=== PATIENT | male | born 1975 | race Two or more races ===

== ENCOUNTER 2017-01-17 11:21 | Emergency (ER) | payer SELFPAY ==
[2017-01-17 11:29] VITALS: BP 141/41; BMI 25.0
[2017-01-17] MEDS ORDERED: ADACEL TDaP IM ONE ×2 (12:26→12:29)
[2017-01-17] MEDS ORDERED: HYDROGEN PEROXIDE 3% ONE (12:28)
--- NOTE | 2017-01-17 13:10 | RAD ---
HISTORY: Crush injury to left 5th digit. Study: Left hand three views Comparison: None. Findings: There is a fracture through the distal aspect of the distal phalanx of the left 5th digit. There is o verlying soft tissue swelling. There is no evidence of dislocation. IMPRESSION: 1. Acute fracture through the distal phalanx of the left 5th digit. Reported By:
--- NOTE | 2017-01-17 13:46 | DR.LACERAT ---
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 He c/o pain and cut of his little finger. - Complaints Chief Complaint Doctors Comments: " My little finger hurts" Chief Complaint:: PT SMASHED HIS LEFT PINKY FINGER WHILE WORKING ON A TRACTOR HIS FINGER GOT SMASHED .. Self Treatment fo Chief Complaint: PT STATES HE WAS WORKING ON HIS [employer] AND HE'S PRESENT .. - Reviewed Nurses Notes Reviewed: Yes - Source History Provided: Patient - Mode of Arrival Mode of Arrival: Ambulatory - Timing Onset of Chief Complaint: 01/17/17 PMH - PMH Past Medical History: No Past Surgical History: No - Family History History of Family Medical Conditions: No - Social History Does patient currently use any type of tobacco product: Yes Have you used tobacco products in the last 12 months: Yes Type of Tobacco Use: Cigarettes How many years tobacco product used: 3 Does any household member use tobacco: No Alcohol Use: None Do you use any recreational Drugs:: No Lives With: Family Lives Where: Home - infectious screening In the last 2 months have you had wt loss of >10#?: NO Have you had fever, night sweats or hemotysis?: No Have you traveled outside the country in the last 6 months?: No Isolation: Standard ROS - Review of Systems Constitutional: No Symptoms Reported Respiratoy: No Symptoms Reported Cardiovascular: No Symptoms Reported Gastrointestinal/Abdominal: No Symptoms Reported Genitourinary: No Symptoms Reported Neurological: No Symptoms Reported Musculoskeletal: Left, Hand (laceration and possible fracture) Integumentary: No Symptoms Reported Hematologic/Lymphatic: No Symptoms Reported Psychiatric: No Symptoms Reported All Other Systems: Reviewed and Negative PE - Vital Signs Vitals: Temperature 98.4 F Pulse Rate 70 Respiratory Rate 20 Blood Pressure 141/41 O2 Sat by Pulse Oximetry 97 - General Limitations: No Limitations General Appearance: Alert, In No Apparent Distress - Chest Chest Inspection: Normal Inspection, Symmetric Chest Wall Rise - Respiratory Respiratory Exam: Normal Lung Sounds Bilat Respiratory Exam: Bilateral Clear to Auscultation - Cardiovascular Cardiovascular Exam: Regular Rate, Normal Rhythm, Normal Heart Sounds - Skin Skin Exam: Warm, Dry Type of Lesion: Laceration Distribution: Other (5th digit left hand) Description: Size (1cm) - Other Exam Other Exam: Left distal 5th phalanx with grease , dorsal avulsive laceration and palmar linear [place] laceration(1 cm). MDM - Differential Diagnosis Differential Diagnosis: Avulsion, Contusion, Laceration, Fracture ROR - Labs Reviewed Laboratory Results Reviewed?: Yes - XRAY XRAY Interpreted by: Radiologist (distal 5th phalanx fracture ) Procedures - Laceration/Wound Repair Left Distal 4th Digit Wound's Depth, Shape: Other (small bone exposure) Wound Explored: foreign body removed (grease, green paint, dirt) Irrigated w/ Saline (ccs): 50 Betadine Prep?: Yes Anesthesia: 1% Lidocaine Volume Anesthetic (ccs): 10 Wound Debrided: moderate Suture Size/Type: Vicryl Progress: Small area of bony exposure noted, severe contamination with grease, dirt, green paint and grass. No sutures. I will send to ortho for possible deep irrigation and repair. - Diagnosis Discharge Problem: Fracture phalanges, hand Qualifiers: Encounter type: initial encounter Fracture type: closed Qualified Code(s): S62.609A - Fracture of unspecified phalanx of unspecified finger, initial encounter for closed fracture Laceration of finger of left hand Qualifiers: Encounter type: initial encounter Finger: little finger Damage to nail status: with damage Foreign body presence: with foreign body Qualified Code(s): S61.327A - Laceration with foreign body of left little finger with damage to nail, initial encounter - Discharge Plan Disposition: 01 HOME, SELF-CARE Condition: Stable Prescriptions: Ciprofloxacin HCl [CIPRO 500 MG TAB *] 500 mg PO Q12H #20 tab Hydrocodone/Acetaminophen [[place] 5-325 Tablet] 1 each PO QID PRN #15 tablet PRN Reason: - Follow ups/Referrals Follow ups/Referrals: KERRI YOUNG [Primary Care Provider] - 3 days - Instructions Instructions: Laceration Care, Adult, [id number], Crush Injury of the Fingers or Toes
[2017-01-17] MEDS ORDERED: ANCEF VIAL 1 GM IM ONE (13:49)
[2017-01-17] MEDS ORDERED: ANCEF VIAL 1 GM ONE (13:52)
[2017-01-17] MEDS ORDERED: XYLOCAINE 2 % (PLAIN) ONE (14:43)
[2017-01-17] MEDS ORDERED: BACITRACIN ZINC ONE (15:03)
== END 2017-01-17 15:25 | disposition home or self-care (01) ==
LOC: ER 11:33
PROC: 0PQ Upper Bones, Repair (ICD-10-PCS; principal; 2017-01-17)
DX: S62.609A Fracture of unspecified phalanx of unspecified finger, initial encounter for closed fracture (principal); S61.327A Laceration with foreign body of left little finger with damage to nail, initial encounter; W45.8XXA Other foreign body or object entering through skin, initial encounter; Y92.89 Other specified places as the place of occurrence of the external cause
CPT/HCPCS: 12001; 73130; 96372; 99282; 99283; J0690; J2001

== ENCOUNTER 2017-01-18 11:38 | Day surgery (SDC) | payer SELFPAY ==
[2017-01-18 11:42] LABS: BASOPHILS % (AUTO) 0.4 % (0.2-1.0); EOSINOPHILS % (AUTO) 0.6 % (0.9-2.9); HEMATOCRIT 44.3 % (42.0-54.0); HEMOGLOBIN 15.5 g/dL (13.5-18.0); LYMPHOCYTES # (AUTO) 1.6 X10^3/uL (1.3-2.9); LYMPHOCYTES % (AUTO) 19.8 % (21.0-51.0); MEAN CORPUSCULAR HEMOGLOBIN 30.8 pg (27.0-34.0); MEAN CORPUSCULAR HGB CONC 35.1 g/dL (33.0-35.0); MEAN CORPUSCULAR VOLUME 87.8 fL (80.0-100.0); MEAN PLATELET VOLUME 10.4 fL (7.4-11.0); MONOCYTES # (AUTO) 0.6 x10^3/uL (0.3-0.8); MONOCYTES % (AUTO) 7.6 % (0.0-13.0); NEUTROPHILS # (AUTO) 5.7 x10^3/uL (2.2-4.8); NEUTROPHILS % (AUTO) 71.6 % (42.0-75.0); PLATELET COUNT 162 X10^3/uL (150.0-450.0); RED BLOOD COUNT 5.05 X10^6/uL (4.7-6.0); RED CELL DISTRIBUTION WIDTH 13.5 % (11.6-16.5)
[2017-01-18] MEDS ORDERED: D5 LR 1000 ML 1,000 ML IV ONE (11:42)
[2017-01-18 11:51] LABS: ALANINE AMINOTRANSFERASE 35 Units/L (12-78); ALBUMIN 3.7 g/dL (3.4-5.0); ALKALINE PHOSPHATASE 73 Units/L (46-116); ASPARTATE AMINO TRANSFERASE 15 Units/L (15-37); BLOOD UREA NITROGEN 16 mg/dL (7-18); CALCIUM 8.6 mg/dL (8.5-10.1); CARBON DIOXIDE 32.7 mmol/L (21-32); CHLORIDE 104 mmol/L (98-107); CREATININE 1.01 mg/dL (0.70-1.30); GLUCOSE 90 mg/dL (65-99); SODIUM 140 mmol/L (136-145); TOTAL PROTEIN 7.2 g/dL (6.4-8.2); eGFR BLACK RACES > 60 (>60); eGFR NON BLACK RACES > 60 (>60)
[2017-01-18] MEDS ORDERED: XYLOCAINE 1 % (PLAIN) ONE (13:06)
[2017-01-18] MEDS ORDERED: MARCAINE 0.25% INJ ONE (13:07)
[2017-01-18] MEDS ORDERED: NS IRRIGATION 1000 ML 1,000 ML with BACITRACIN VIAL 50,000 UNT IR ONE ×6 (14:00→15:40)
[2017-01-18] MEDS: BACTROBAN OINT ONE ×2 (14:04→15:58)
[2017-01-18] MEDS ORDERED: NS 50 ML IV + SPIKE MINIBAG* 100 ML IV ONE (14:11)
[2017-01-18] MEDS ORDERED: ANCEF VIAL 1 GM ONE (14:11)
[2017-01-18] MEDS ORDERED: XYLOCAINE 2 % (PLAIN) ONE (14:56)
[2017-01-18] MEDS ORDERED: SUPRANE IN ONE (14:56)
[2017-01-18] MEDS ORDERED: ZOFRAN INJ 4 MG VIAL ONE (14:56)
[2017-01-18] MEDS ORDERED: DIPRIVAN VIAL ONE (14:56)
[2017-01-18] MEDS ORDERED: VERSED ONE (14:56)
[2017-01-18] MEDS ORDERED: FENTANYL INJ 250 mcg ONE (15:22)
[2017-01-18] MEDS ORDERED: HYDROGEN PEROXIDE 3% ONE (16:46)
[2017-01-18] MEDS ORDERED: BENADRYL INJ 50 MG VIAL IVP PRN (17:05)
[2017-01-18] MEDS ORDERED: REGLAN INJ 10 MG VIAL IVP PRN (17:05)
[2017-01-18] MEDS ORDERED: PHENERGAN INJ 25 MG IVP PRN (17:05)
[2017-01-18] MEDS ORDERED: ZOFRAN INJ 4 MG VIAL IVP PRN (17:05)
[2017-01-18] MEDS: DILAUDID INJ IVP PRN ×3 (17:26→17:38)
[2017-01-18 18:56] VITALS: BP 127/95
--- NOTE | 2017-01-21 08:25 | RAD ---
Examination: X-rays of the left hand. Clinical history: Postop for 5th digit fracture. Technique: Three views of the left hand were obtained. Comparison: 01/17/2017. Findings: A previously seen oblique fracture involving the terminal tuft of the distal phalanx of the 5th finge r, has now been internally fixated with a longitudinally placed K-wire, which extends through the ent conrado length of the distal phalanx of the 5th finger and traverses the DIP joint with extension into th e middle phalanx of the 5th finger. The fracture is in near anatomic reduction. No additional bony or soft tissue abnormality is noted. Impression: 1. The fracture of the distal phalanx of the 5th finger, as described above. Reported By:
== END 2017-01-18 18:45 | disposition home or self-care (01) ==
LOC: SURG1 11:38
PROVIDERS: ATTEND Orthopaedic Surgery
PROC: 0PSV04Z Reposition Left Finger Phalanx with Internal Fixation Device, Open Approach (ICD-10-PCS; principal; 2017-01-18 10:30)
PROC: 0JDK0ZZ Extraction of Left Hand Subcutaneous Tissue and Fascia, Open Approach (ICD-10-PCS; 2017-01-18 10:30)
PROC: 0HRGX73 Replacement of Left Hand Skin with Autologous Tissue Substitute, Full Thickness, External Approach (ICD-10-PCS; 2017-01-18 10:30)
DX: S62.631A Displaced fracture of distal phalanx of left index finger, initial encounter for closed fracture (principal); X58.XXXA Exposure to other specified factors, initial encounter
CPT/HCPCS: 36415; 73130; 76000; 80053; 85025; 87070; 87205; A4222; S0020; J0690; J1170; J2001; J2250; J2405; J3010; J3490; J7120

== ENCOUNTER → 2017-01-29 | Outpatient (CLI) | payer OTHER ==
[2017-01-18 18:56] VITALS: BP 127/95
--- NOTE | 2017-01-29 10:07 | RAD ---
Examination: X-rays of the left hand. Clinical history: Open displaced fracture of distal phalanx of left little finger. Technique: Three views of the left hand were obtained through a splint. Comparison: 01/18/2017. Findings: There is a stable oblique fracture of the terminal tuft of the distal phalanx of the 5th finger, with a longitudinally placed K-wire again seen extending through the entire length of the distal phalanx of the 5th finger, traversing the DIP joint and extending into the middle phalanx of the 5th finger. There is stable mild dorsal displacement of the distal fragment. No appreciable callus formation or p eriosteal reaction is noted. No soft tissue abnormality is noted. Impression: 1. Fracture of the distal phalanx of the 5th finger, as described above. Reported By:
== END ==
LOC: RAD 09:17
PROVIDERS: ATTEND Orthopaedic Surgery
DX: S62.637B Displaced fracture of distal phalanx of left little finger, initial encounter for open fracture (principal); X58.XXXA Exposure to other specified factors, initial encounter
CPT/HCPCS: 73130